=== PATIENT | female | born 1945 | race Two or more races ===

== ENCOUNTER 2022-05-13 21:38 | Emergency (ER) | payer OTHER ==
[~2022-05-13] VITALS: Ht 165.1 cm; Wt 71.7 kg
[2022-05-13] MEDS ORDERED: PEPCID AC10 MG PO (21:55)
[2022-05-13] MEDS ORDERED: SYNTHROID75 MCG PO (21:55)
== END 2022-05-13 23:22 | disposition home or self-care (01) ==
LOC: ER 21:38
DX: F41.9 Anxiety disorder, unspecified (principal); Z88.6 Allergy status to analgesic agent; Z88.0 Allergy status to penicillin

== ENCOUNTER 2023-01-26 06:33 | Emergency (ER) | payer OTHER ==
[~2023-01-26] VITALS: Ht 162.6 cm; Wt 72.6 kg
[~2023-01-26 06:33] MED LIST: PEPCID AC10 MG PO; SYNTHROID75 MCG PO
[2023-01-26] MEDS ORDERED: SERTRALINE20 MG/1 ML (07:26)
[2023-01-26] MEDS ORDERED: COZAAR50 MG PO (07:27)
[2023-01-26 09:05] LABS: URINE APPEARANCE Clear; URINE BILIRRUBIN Negative (NEGATIVE); URINE BLOOD Negative; URINE COLOR Yellow; URINE GLUCOSE Negative (NEGATIVE); URINE LEUKOCYTE Trace; URINE NITRATE Negative; URINE PROTEIN Negative (NEGATIVE); URINE UROBILINOGEN 0.2 E.U./dl
[2023-01-26 09:09] LABS: URINE BACTERIA 152.3 uL (0.0-1933); URINE EPITHELIAL CELLS 3.5 uL (0.0-38.8); URINE RBC 10.6 uL (0.0-20.8); URINE WBC 38.8 uL (0.0-23.2)
[2023-01-26 09:14] LABS: HEMATOCRIT 43.3 % (36.0-45.00); HEMOGLOBIN 14.8 g/dL (12.0-15.00); MEAN CELL VOLUME 88.7 fL (80.00-100.00); MEAN CORPUSCULAR HEMOGLOBIN 30.4 pg (27.00-32.0); MEAN CORPUSCULAR HGB CONC 34.3 g/dl (32.0-36.0); PLATELET COUNT 264 K/uL (150-450); RED BLOOD COUNT 4.88 M/uL (4.00-6.00); RED CELL DISTRIBUTION WIDTH 13.8 % (11.5-14.5)
[2023-01-26 09:52] LABS: ALBUMIN 4.2 gm/dL (3.4-5.0); BILIRUBIN TOTAL 0.63 mg/dL (0.3-1.2); CALCIUM 9.6 mg/dL (8.5-10.1); CREATININE SERUM 0.79 mg/dL (0.55-1.02); GFR 70.76; GLOBULINA 3.5 G/DL (2.4-3.5); POTASSIUM 3.88 mEq/L (3.5-5.1); TOTAL PROTEIN 7.7 gm/dL (6.4-8.2); TSH 1.52 uIU/mL (0.358-3.74)
== END 2023-01-26 10:10 | disposition home or self-care (01) ==
LOC: ER 06:33
PROVIDERS: General Practice
DX: R07.89 Other chest pain (principal)
CPT/HCPCS: 36415; 71045; 96365; 99283; J3490